=== PATIENT | female | born 1950 | race Caucasian/White ===

== ENCOUNTER → 2017-07-12 | Day surgery (SDC) | payer MEDICARE, OTHER ==
[~2017-07-12] MED LIST: CIPR500T4 PO; COZA50TA PO; DULE200A INH; EZET10 PO; HYDR-2768 PO; LACTATED RINGER'S 1000 ML INJ 1,000 ML ONE; LEVO.1 PO; LEVO.15 PO; OMEP20TA PO; ONDA4 PO; PROPOFOL 500 MG/50 ML BTL IV ONE; QUEN12.5 PO; SIMV40TA PO; VENTAER INH; ZYRT10TA12 PO
--- NOTE | 2017-07-12 09:16 | GIPROC ---
[facility] [address] [facility], [address] COLONOSCOPY PROCEDURE REPORT EXAM DATE: 07/12/2017 PATIENT NAME: Cheryl Banks MR #: [id number] BIRTHDATE: 1950 ENDOSCOPIST: Sukumar Goodrich MD ORDER #: [id number] [employer] DIRECTOR: Rita Moser RN STATUS: outpatient INDICATIONS: The patient is a 67 yr old female here for a colonoscopy due to average risk patient for colon cancer PROCEDURE PERFORMED: Colonoscopy with polypectomy MEDICATIONS: None and Per Anesthesia. PREP QUALITY: excellent ESTIMATED BLOOD LOSS: None CONSENT: The patient understands the risks and benefits of the procedure and understands that these risks include, but are not limited to: sedation, allergic reaction, infection, perforation and/or bleeding. Alternative means of evaluation and treatment include, among others: physical exam, x-rays, and/or surgical intervention. The patient elects to proceed with this endoscopic procedure. medical equipment was checked for proper function. Hand hygiene and appropriate measures for infection prevention was taken. After the risks, benefits and alternatives of the procedure were thoroughly explained, Informed consent was verified, confirmed and timeout was successfully executed by the treatment team. A digital exam revealed no abnormalities of the rectum The EC-3490Li ([id number]) endoscope was introduced through the anus and advanced to the cecum, which was identified by both the appendix and ileocecal valve. The instrument was then slowly withdrawn as the colon was fully examined. COLON FINDINGS: A smooth sessile polyp measuring 8 mm in size was found in the ascending colon. A polypectomy was performed with a cold snare. The resection was complete and the polyp tissue was completely retrieved. The colon mucosa was otherwise normal. Retroflexed views revealed no abnormalities The scope was then completely withdrawn from the patient and the procedure terminated. PROCEDURE WITHDRAWAL TIME:8.3minutes ADVERSE EVENTS: There were no complications. IMPRESSIONS: 1. A sessile polyp was found in the ascending colon; polypectomy was performed with a cold snare 2. The colon mucosa was otherwise normal 3. Retroflexed views revealed no abnormalities 4. Revealed no abnormalities of the rectum RECOMMENDATIONS: 1. Await biopsy results. Biopsy results will not be ready for 7-10 days. If you don't hear from us in two weeks, call our office for results. 2. Yearly hemoccult 3. High fiber diet 4. Follow-up: GI Clinic PRN RECALL: Return 5 years Colonoscopy Sukumar Goodrich MD eSigned: Sukumar Goodrich MD 07/12/2017 9:15 AM cc: Faisal Fonseca M.D.
--- NOTE | 2017-07-12 09:19 | GIPROC ---
[facility] [address] [facility], [address] EGD PROCEDURE REPORT EXAM DATE: 07/12/2017 PATIENT NAME: Cheryl Banks MR #: [id number] BIRTHDATE: 1950 ATTENDING: Sukumar Goodrich MD ORDER #: [id number] CARTRIDGE FILLER: Rita Moser RN STATUS: outpatient INDICATIONS: The patient is a 67 yr old female here for an EGD due to history of esophageal reflux PROCEDURE PERFORMED: EGD w/ biopsy MEDICATIONS: None and Per Anesthesia. TOPICAL ANESTHETIC: CONSENT: The patient understands the risks and benefits of the procedure and understands that these risks include, but are not limited to: sedation, allergic reaction, infection, perforation and/or bleeding. Alternative means of evaluation and treatment include, among others: physical exam, x-rays, and/or surgical intervention. The patient elects to proceed with this endoscopic procedure. medical equipment was checked for proper function. Hand hygiene and appropriate measures for infection prevention was taken. After the risks, benefits and alternatives of the procedure were thoroughly explained, Informed consent was verified, confirmed and timeout was successfully executed by the treatment team. The patient was anesthetized with topical anesthesia and the EC-3490Li ([id number]) endoscope was introduced through the mouth and advanced to the second portion of the duodenum. Retroflexed views revealed no abnormalities The gastroscope was then slowly withdrawn and removed. ESOPHAGUS: There was LA Class A esophagitis noted. Multiple biopsies were performed. The endoscopy was otherwise normal. STOMACH: There was mild gastritis in the gastric antrum. Multiple biopsies were performed. ADVERSE EVENTS: There were no complications. IMPRESSIONS: 1. There was LA Class A esophagitis noted; multiple biopsies were performed 2. Normal endoscopy otherwise 3. There was mild gastritis in the gastric antrum; multiple biopsies were performed 4. Retroflexed views revealed no abnormalities RECOMMENDATIONS: 1. Await biopsy results. Biopsy results will not be ready for 7-10 days. If you don't hear from us in two weeks, call our office for biopsy results. 2. Follow-up: GI clinic 3 week(s) PATIENT CONDITION: stable DISPOSITION: Home REPEAT EXAM: Sukumar Goodrich MD eSigned: Sukumar Goodrich MD 07/12/2017 9:18 AM cc: Faisal Fonseca M.D.
== END | disposition home or self-care (01) ==
LOC: ESDC 06:42
PROVIDERS: ATTEND Internal Medicine Gastroenterology
DX: Z12.11 Encounter for screening for malignant neoplasm of colon (principal); K21.9 Gastro-esophageal reflux disease without esophagitis; D12.2 Benign neoplasm of ascending colon; K20.9 Esophagitis, unspecified; K29.70 Gastritis, unspecified, without bleeding
CPT/HCPCS: 00813; 43239; 45380; 45385; 88305; 88312; J3010; J7120